=== PATIENT | male | born 1970 | race Caucasian/White ===

== ENCOUNTER → 2016-11-16 | Outpatient (CLI) | payer OTHER ==
--- NOTE | 2016-11-16 13:44 | KCIC ---
Examination: MRI of the left knee without contrast. HISTORY History of left knee pain. COMPARISON None available. TECHNIQUE Multiplanar, multisequence MR imaging of the left knee was performed without contrast. Findings: The anterior cruciate ligament, posterior cruciate ligament appear intact. The medial meniscus is intact. The lateral meniscus is intact. The medial collateral ligament is intact. The lateral collateral ligamentous complex including the fibular collateral ligament, biceps femoris tendon, popliteus tendon appear intact. Small knee joint effusion is identified. The attachment of the quadriceps tendon to the patella grossly appears intact. There is minimal increased T2 signal identified just deep to the distal fibers of the tibial band. There is a moderate increased chapman signal identified at yhe patellar tendon attachment to the patella likely secondary to jumper's knee or patellar tendinitis. The medial retinaculum, lateral retinaculum appear intact. There is superficial fraying of cartilage identified in the medial compartment, lateral compartment. There is deep fraying of cartilage identified in the patellofemoral compartment with small subchondral cystic changes identified in the patellar trochlea and the medial patellar facet. Impression: 1. Moderate increased chapman signal identified at the infrapatellar tendon attachment to the patella could be patellar tendinitis/jumper's knee or old partial tear. 2.Grade 2 chondromalacia patella. 3. Small knee joint effusion. 4. There is minimal increased T2 signal/edema identified just deep to the distal fibers of the tibial band, nonspecific correlate for IT band syndrome. Electronically signed by: Gurmeet Araujo (November 16, 2016 13:43:03)
== END | disposition home or self-care (01) ==
LOC: KCIC MRI 12:28
PROVIDERS: ATTEND General Practice
DX: M25.562 Pain in left knee (principal); M25.462 Effusion, left knee
CPT/HCPCS: 73721